=== PATIENT | female | born 1935 | race African-American/Black ===

== ENCOUNTER → 2017-10-27 | Outpatient (CLI) | payer MEDICARE ==
[2016-10-21 10:10] VITALS: BP 162/74
[~2017-10-27] MED LIST: ACET-704 PO; DILT240C2; NYST15PO9 TP; PRED20TA PO; PROM25TA10 PO; SULF1TAB24 PO
--- NOTE | 2017-10-27 11:16 | RAD ---
DATE: 10/27/2017 EXAM: DIGITAL SCREEN BILAT W/CAD HISTORY: Routine screening. Bilateral breast biopsy status post radiation in 1999 and 2008. COMPARISON: Previous study from 10/20 12/16 and 08/24/2015 This study was interpreted with the benefit of Computerized Aided Detection (CAD). FINDINGS: Breast Density: SCATTERED The breast parenchyma shows scattered fibroglandular densities. Breast parenchyma level B. Architectural distortion is seen in the posterior left breast at 12:00 position, stable from prior study. This most likely represents scar from surgery. Benign bilateral calcifications. No suspicious calcifications, new spiculated mass or areas of architectural distortion. Bilateral mild skin thickening may be secondary to radiation therapy. IMPRESSION: No mammographic evidence of malignancy. Stable mammogram. BI-RADS CATEGORY: 2 BENIGN FINDING(S) RECOMMENDED FOLLOW-UP: 12M 12 MONTH FOLLOW-UP PQRS compliance statement: Patient information was entered into a reminder system with a target due date 10/27/2018 for the next mammogram. Mammography is a sensitive method for finding small breast cancers, but it does not detect them all and is not a substitute for careful clinical examination. A negative mammogram does not negate a clinically suspicious finding and should not result in delay in biopsying a clinically suspicious abnormality. "Our facility is accredited by the [employer] Mammography Program."
== END | disposition home or self-care (01) ==
LOC: MAMMO 09:50
PROVIDERS: ATTEND Family Medicine
DX: Z12.31 Encounter for screening mammogram for malignant neoplasm of breast (principal)
CPT/HCPCS: G0202; 77067

== ENCOUNTER 2018-01-16 10:17 | Emergency (ER) | payer MEDICARE | END 2018-01-16 11:30 | disposition home or self-care (01) | LOC: ER 10:17 | DX: B37.2 Candidiasis of skin and nail (principal); R10.2 Pelvic and perineal pain; K21.9 Gastro-esophageal reflux disease without esophagitis; I10 Essential (primary) hypertension; Z91.041 Radiographic dye allergy status | CPT/HCPCS: 99283 ==

== ENCOUNTER 2018-02-21 18:16 | Emergency (ER) | payer MEDICARE ==
[2018-02-21 19:25] LABS: ADD MAN DIFF? NO
[2018-02-21 19:31] LABS: BASO % 1 % (0-3); EOS % 1 % (0-3); HEMATOCRIT 39.2 % (36.0-47.0); HEMOGLOBIN 12.9 g/dL (12.0-15.5); LYMPH # 1.8 x10^3/uL (1.0-4.8); LYMPH % 22 % (24-48); MEAN CORPUSCULAR HEMOGLOBIN 31 pg (25-35); MEAN CORPUSCULAR HGB CONC 33 g/dL (31-37); MEAN CORPUSCULAR VOLUME 94 fL (79-100); MONO # 0.6 x10^3/uL (0.0-1.1); MONO % 7 % (0-9); NEUT # 5.5 x10^3uL (1.8-7.7); NEUT % 69 % (31-73); PLATELET COUNT 311 x10^3/uL (140-400); RED BLOOD COUNT 4.16 x10^6/uL (3.50-5.40); RED CELL DISTRIBUTION WIDTH 13.8 % (11.5-14.5); WHITE BLOOD COUNT 7.9 x10^3/uL (4.0-11.0)
[2018-02-21 19:41] LABS: INR 1.1 (0.8-1.1); PROTHROMBIN TIME PATIENT 13.3 SEC (11.7-14.0)
[2018-02-21 19:50] LABS: ANION GAP 5 (6-14); BLOOD UREA NITROGEN 20 mg/dL (7-20); CALCIUM 9.8 mg/dL (8.5-10.1); CARBON DIOXIDE 34 mmol/L (21-32); CHLORIDE 107 mmol/L (98-107); CREATININE 0.8 mg/dL (0.6-1.0); GFR 83.1; GLUCOSE 103 mg/dL (70-99); POTASSIUM 4.3 mmol/L (3.5-5.1); SODIUM 146 mmol/L (136-145)
[2018-02-21 19:53] LABS: TROPONINI 0.019 ng/mL (0.000-0.055)
[2018-02-21 19:56] LABS: ALBUMIN 3.5 g/dL (3.4-5.0); ALK PHOS 80 U/L (46-116); ALT (SGPT) 27 U/L (14-59); AST (SGOT) 26 U/L (15-37); DIRECT BILIRUBIN 0.1 mg/dL (0.0-0.2); LIPASE 64 U/L (73-393); MAGNESIUM 2.1 mg/dL (1.8-2.4); TOTAL BILIRUBIN 0.3 mg/dL (0.2-1.0); TOTAL PROTEIN 7.8 g/dL (6.4-8.2)
[2018-02-21 20:00] LABS: THYROID STIM HORMONE (TSH) 0.521 uIU/mL (0.358-3.74)
[2018-02-21 20:02] LABS: NT-PRO BNP 125 pg/mL (0-449)
[2018-02-21 20:02] LABS: CKMB INDEX 0.9 % (0-4); CREATINE KINASE 109 U/L (26-192)
[2018-02-21 20:33] LABS: BILIRUBIN,URINE NEGATIVE (NEG); CLARITY,URINE CLEAR; COLOR,URINE YELLOW; GLUCOSE,URINE NEGATIVE (NEG); NITRITE,URINE NEGATIVE (NEG); PROTEIN,URINE NEGATIVE (NEG-TRACE)
[2018-02-21 20:41] LABS: BARBITURATES NEG (NEG); BENZODIAZEPINES POS (NEG); CANNABINOIDS NEG (NEG); COCAINE NEG (NEG); METHADONE NEG (NEG); OPIATES POS (NEG); PHENCYCLIDINE NEG (NEG)
[2018-02-21 20:42] LABS: AMPHETAMINE/METHAMPHETAMINE NEG (NEG); ETHANOL, URINE NEG (NEG)
[2018-02-21 20:46] LABS: BACTERIA,URINE MODERATE /HPF (0-FEW); RBC,URINE 0 /HPF (0-2); SQUAMOUS EPITHELIAL CELL,UR MANY /LPF
== END 2018-02-21 21:15 | disposition home or self-care (01) ==
LOC: ER 18:16
DX: M62.838 Other muscle spasm (principal); M54.2 Cervicalgia; N39.0 Urinary tract infection, site not specified; K21.9 Gastro-esophageal reflux disease without esophagitis; I10 Essential (primary) hypertension; Z91.041 Radiographic dye allergy status; Z90.49 Acquired absence of other specified parts of digestive tract; Z90.710 Acquired absence of both cervix and uterus
CPT/HCPCS: 36415; 71045; 80048; 80076; 80307; 81001; 82553; 83690; 83735; 83880; 84443; 84484; 85025; 85610; 87086; 93005; 99285-25

== ENCOUNTER 2018-03-28 17:04 | Emergency (ER) | payer MEDICARE ==
[2018-03-28] MEDS: ONDANSETRON ODT 4 MG TAB.RAPDIS. PO (17:32)
== END 2018-03-28 18:45 | disposition home or self-care (01) ==
LOC: ER 17:04
DX: T50.995A Adverse effect of other drugs, medicaments and biological substances, initial encounter (principal); R25.1 Tremor, unspecified; K21.9 Gastro-esophageal reflux disease without esophagitis; I10 Essential (primary) hypertension; Y92.89 Other specified places as the place of occurrence of the external cause
CPT/HCPCS: 93005; 99283-25; Q0162

== ENCOUNTER 2018-10-12 10:47 | Emergency (ER) | payer MEDICARE ==
[~2018-10-12] VITALS: Ht 165.1 cm; Wt 61.2 kg
[~2018-10-12 10:47] MED LIST changes: +ALPR0.5T6 PO; +CEPH-264 PO; +DIAZ2TAB PO; +NITR100C62 PO; +ONDA4TAB12 PO; +PANT20TA2 PO; +SERT50TA8 PO
[2018-10-12 12:05] LABS: BASO % 1 % (0-3); EOS % 0 % (0-3); HEMATOCRIT 41.1 % (36.0-47.0); HEMOGLOBIN 14.1 g/dL (12.0-15.5); LYMPH # 1.9 x10^3/uL (1.0-4.8); LYMPH % 23 % (24-48); MEAN CORPUSCULAR HEMOGLOBIN 32 pg (25-35); MEAN CORPUSCULAR HGB CONC 34 g/dL (31-37); MEAN CORPUSCULAR VOLUME 93 fL (79-100); MONO # 0.9 x10^3/uL (0.0-1.1); MONO % 10 % (0-9); NEUT # 5.5 x10^3uL (1.8-7.7); NEUT % 66 % (31-73); PLATELET COUNT 389 x10^3/uL (140-400); RED BLOOD COUNT 4.41 x10^6/uL (3.50-5.40); WHITE BLOOD COUNT 8.3 x10^3/uL (4.0-11.0)
--- NOTE | 2018-10-12 12:16 | EKG ---
[facility] [address] [place] [address] Test Date: 2018-10-12 Test Time: 12:13:04 Pat Name: TREY THAYER Department: Room: Gender: Female Child Support Investigator: : 1935 Requested By: FARNAZ MAY Order Number: [id number] Reading MD: Bradley Handley MD Measurements Intervals Friendly Rate: 63 P: 29 MN: 162 QRS: -5 QRSD: 82 T: 28 QT: 430 QTc: 443 Interpretive Statements SINUS RHYTHM Electronically Signed On 10-13-2018 10:58:11 FIRST AID ATTENDANT by Bradley Handley MD
--- NOTE | 2018-10-12 12:32 | RAD ---
PROCEDURE: PORTABLE CHEST 1V CLINICAL INDICATION: SHORTNESS OF BREATH COMPARISON: 02/21/2018 FINDINGS: No pneumothorax identified. Cardiac and mediastinal contours unremarkable. No pulmonary consolidation or acute airspace disease. No acute osseous abnormalities identified. IMPRESSION: No pulmonary consolidation or acute airspace disease. Electronically signed by: Rojelio Dejesus DO (10/12/2018 12:28 PM) [id number]
[2018-10-12 13:06] LABS: CALCIUM 10.2 mg/dL (8.5-10.1); GFR 64.1; POTASSIUM 4.4 mmol/L (3.5-5.1)
[2018-10-12 13:09] LABS: INFLUENZA A PATIENT NEGATIVE (NEGATIVE); INFLUENZA B PATIENT NEGATIVE (NEGATIVE)
[2018-10-12 13:20] LABS: BILIRUBIN,URINE NEGATIVE (NEG); CLARITY,URINE CLEAR; COLOR,URINE YELLOW; NITRITE,URINE NEGATIVE (NEG); PH,URINE 5.5; PROTEIN,URINE NEGATIVE (NEG-TRACE)
[2018-10-12 13:30] LABS: SQUAMOUS EPITHELIAL CELL,UR OCC /LPF
[2018-10-12 13:31] LABS: BACTERIA,URINE FEW /HPF (0-FEW)
--- NOTE | 2018-10-12 13:32 | PHYS DOC ---
Past Medical History Past Medical History: Anxiety, Arthritis, Cancer, GERD, Hypertension, Pneumonia Additional Past Medical Histor: BREAST CA WITH CHEMO AND RADIATION, DJD Past Surgical History: Appendectomy, Hysterectomy, Other Additional Past Surgical Histo: bilateral lumpectomy, BLADDER SLING, CARDIAC CATH WITH NO STENTS Alcohol Use: None Drug Use: None Adult General Chief Complaint Chief Complaint: NAUSEA/VOMITING/DIARRHA HPI HPI Patient is a 83 year old female who presents with generalized weakness. No ill over the last 7 days. She complains of persistent nausea but no vomiting. She does have some diffuse abdominal pain. She has also had episodes of diarrhea described to be nonbloody. The patient states she has had problems ambulating around her house. She does normally live alone. She has not fallen. She also has had anorexia over the last 4-5 days. She denies urinary symptoms. No constipation. Denies chest pain. She does feel that she is having dyspnea that is present both with exertion and at rest. No worsening orthopnea. Denies lower extremity edema. Review of Systems Review of Systems Constitutional: Denies fever or chills Eyes: Denies change in visual acuity HENT: Denies nasal congestion Respiratory: Denies cough or shortness of breath Cardiovascular: No additional information not addressed in HPI GI: as documented above : Denies dysuria or hematuria Musculoskeletal: Denies back pain Integument: Denies rash or skin lesions Neurologic: Denies headache Endocrine: Denies polyuria All other systems were reviewed and found to be within normal limits, except as documented in this note. Current Medications Current Medications Current Medications Medications (Trade) Dose Ordered Sig/[facility] Start Time Stop Time Status Last Admin Dose Admin Ondansetron HCl (Zofran) 4 mg 1X ONCE 10/12/18 14:00 10/12/18 14:01 DC 10/12/18 14:00 4 MG Sodium Chloride 500 ml @ 500 mls/hr 1X ONCE 10/12/18 14:00 10/12/18 14:59 DC 10/12/18 14:00 500 MLS/HR Allergies Allergies Allergies Coded Allergies Type Severity Reaction Last Updated Verified Iodinated Contrast- Oral and IV Dye Allergy Severe ITCHING AND SHORT OF BREATH 06/20/16 Yes iodine Allergy Severe ITCHING AND SHORTNESS OF BREATH 06/20/16 Yes Physical Exam Physical Exam Constitutional: Well developed, well nourished, no acute distress, non-toxic appearance HENT: Normocephalic, atraumatic, bilateral external ears normal, oropharynx moist Eyes: PERRLA, EOMI, conjunctiva normal, no discharge Neck: Normal range of motion, no tenderness, supple Cardiovascular:Heart rate regular rhythm Lungs & Thorax: Bilateral breath sounds clear to auscultation Abdomen: Bowel sounds normal, soft, diffusely tender to palpation with no guarding or rebound Skin: Warm, dry, no erythema Back: No CVA tenderness Extremities: No tenderness, no edema Neurologic: Alert and oriented X 3, normal motor function Psychologic: Affect normal Current Patient Data Vital Signs Vital Signs Date Time Temp Pulse Resp B/P (MAP) Pulse Ox O2 Delivery O2 Flow Rate FiO2 10/12/18 14:04 64 24 158/82 (107) 94 10/12/18 11:59 98.6 Room Air 98.6 Lab Values Laboratory Tests Test 10/12/18 11:53 10/12/18 12:26 10/12/18 12:45 10/12/18 13:05 White Blood Count 8.3 x10^3/uL (4.0-11.0) Red Blood Count 4.41 x10^6/uL (3.50-5.40) Hemoglobin 14.1 g/dL (12.0-15.5) Hematocrit 41.1 % (36.0-47.0) Mean Corpuscular Volume 93 fL (79-100) Mean Corpuscular Hemoglobin 32 pg (25-35) Mean Corpuscular Hemoglobin Concent 34 g/dL (31-37) Red Cell Distribution Width 14.0 % (11.5-14.5) Platelet Count 389 x10^3/uL (140-400) Neutrophils (%) (Auto) 66 % (31-73) Lymphocytes (%) (Auto) 23 % (24-48) L Monocytes (%) (Auto) 10 % (0-9) H Eosinophils (%) (Auto) 0 % (0-3) Basophils (%) (Auto) 1 % (0-3) Neutrophils # (Auto) 5.5 x10^3uL (1.8-7.7) Lymphocytes # (Auto) 1.9 x10^3/uL (1.0-4.8) Monocytes # (Auto) 0.9 x10^3/uL (0.0-1.1) Eosinophils # (Auto) 0.0 x10^3/uL (0.0-0.7) Basophils # (Auto) 0.0 x10^3/uL (0.0-0.2) Influenza Type A Antigen Negative (NEGATIVE) Influenza Type B Antigen Negative (NEGATIVE) Sodium Level 141 mmol/L (136-145) Potassium Level 4.4 mmol/L (3.5-5.1) Chloride Level 101 mmol/L (98-107) Carbon Dioxide Level 32 mmol/L (21-32) Anion Gap 8 (6-14) Blood Urea Nitrogen 26 mg/dL (7-20) H Creatinine 1.0 mg/dL (0.6-1.0) Estimated GFR (Cockcroft-Gault) 64.1 Glucose Level 88 mg/dL (70-99) Calcium Level 10.2 mg/dL (8.5-10.1) H Total Bilirubin 0.6 mg/dL (0.2-1.0) Direct Bilirubin 0.2 mg/dL (0.0-0.2) Aspartate Amino Transferase (AST) 20 U/L (15-37) Alanine Aminotransferase (ALT) 30 U/L (14-59) Alkaline Phosphatase 93 U/L (46-116) Troponin I Quantitative < 0.017 ng/mL (0.000-0.055) GH-Lko-H-Type Natriuretic Peptide 280 pg/mL (0-449) Total Protein 8.4 g/dL (6.4-8.2) H Albumin 4.0 g/dL (3.4-5.0) Lipase 94 U/L (73-393) Urine Collection Type U cath Urine Color Yellow Urine Clarity Clear Urine pH 5.5 Urine Specific [place] 1.025 Urine Protein Negative mg/dL (NEG-TRACE) Urine Glucose (UA) Negative mg/dL (NEG) Urine Ketones (Stick) Negative mg/dL (NEG) Urine Blood Moderate (NEG) Urine Nitrite Negative (NEG) Urine Bilirubin Negative (NEG) Urine Urobilinogen Dipstick 1.0 mg/dL (0.2 mg/dL) Urine Leukocyte Esterase Negative (NEG) Urine RBC 3-5 /HPF (0-2) Urine WBC 1-4 /HPF (0-4) Urine Squamous Epithelial Cells Occ /LPF Urine Bacteria Few /HPF (0-FEW) Urine Mucus Slight /LPF Laboratory Tests 10/12/18 11:53 Laboratory Tests 10/12/18 12:45 EKG EKG No STEMI Interpretation Time: 12:15 Radiology/Procedures Radiology/Procedures PCXR: no acute findings. CT abd/pelvis: FINDINGS: Limited evaluation of solid abdominal and pelvic organs due to lack of IV contrast. Heart is normal in size. No pericardial or effusion. Clear lung bases. Noncontrast appearance of the liver, spleen, gallbladder, pancreas, adrenals within normal limits. 1.4 cm nonobstructing stone in the lower pole collecting system of the right kidney. Multiple bilateral low attenuating lesions are seen in the kidneys, the largest in the inferior pole of the right kidney measuring 0.4 x 4.0 cm and in the left kidney measuring 3.7 x 3.3 cm. No enlarged retroperitoneal or pelvic adenopathy. No free pelvic fluid or ascites. Sigmoid and descending colon diverticulosis. No bowel obstruction. Normal appendix. Urinary bladder demonstrates no stones. Status post hysterectomy. No abdominal hernia. No pneumoperitoneum. No suspicious bony lesion. 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 IMPRESSION: Limited evaluation of solid abdominal and pelvic organs due to lack of IV contrast. 1. Nonobstructing right renal stone with multiple bilateral simple appearing renal cysts. 2. No bowel obstruction normal appendix. Course & Med Decision Making Course & Med Decision Making Pertinent Labs and Imaging studies reviewed. (See chart for details) Patient was evaluated in the emergency department for some nausea and generalized weakness at home. Her lab panel did not reveal acute cause for her symptoms. Her EKG was nonacute. She underwent CT scan of the abdomen pelvis without contrast due to a contrast allergy. This exam also did not reveal any acute explanation for her symptoms. Urine was not infected. Ultimately, the patient was unwilling to stay in the hospital. I discussed with her the option to be admitted for generalized weakness and to receive physical therapy consultation. The patient desired discharge home. The patient is competent to make that choice. I do not feel the hospital admission is imminently necessary. Prior to discharge, the patient was ambulated about the department and had a normal steady gait. She was accompanied this evening by her granddaughter. Patient does have follow-up already scheduled with her primary care physician but she is advised to contact that office tomorrow to inquire about a sooner appointment. Otherwise, return to the emergency department for any new or worsening symptoms. Follow precautions were also discussed with the patient prior to discharge home. In the ER, she received a small fluid bolus and a single dose of Zofran which did entirely relieve her symptoms. She is discharged home also with a prescription for some Zofran. Dragon Disclaimer Dragon Disclaimer This electronic medical record was generated, in whole or in part, using a voice recognition dictation system. Departure Departure Referrals: MARVIN RUSSELL MD (PCP) Scripts Ondansetron (ONDANSETRON ODT) 4 Mg Tab.rapdis 4 MG PO BID PRN for NAUSEA/VOMITING, #12 TAB Prov: FARNAZ MAY DO 10/12/18 FARNAZ MAY DO Oct 12, 2018 13:31
[2018-10-12] MEDS ORDERED: ONDANSETRON PF 4 MG/2 ML VIAL. IV ONE (14:00)
[2018-10-12] MEDS ORDERED: IV NORMAL SALINE 500ML BAG 500 ML IV ONE (14:00)
[2018-10-12 14:04] VITALS: BP 158/82
[2018-10-12 14:23] LABS: DIRECT BILIRUBIN 0.2 mg/dL (0.0-0.2); TOTAL BILIRUBIN 0.6 mg/dL (0.2-1.0); TOTAL PROTEIN 8.4 g/dL (6.4-8.2)
--- NOTE | 2018-10-12 14:56 | RAD ---
PQRS Compliance statement: One or more of the following individualized dose reduction techniques were utilized for this examination: 1. Automated exposure control. 2. Adjustment of the mA and/or kV according to patient size. 3. Use of iterative reconstruction technique. Indication:ABDOMINAL PAIN, NAUSEA, VOMITING, DIARRHEA, X 1 WEEK, H/O CONTRAST ALLERGY TECHNIQUE: CT abdomen and pelvis without IV contrast with multiplanar reformats. COMPARISON: 06/20/2016 FINDINGS: Limited evaluation of solid abdominal and pelvic organs due to lack of IV contrast. Heart is normal in size. No pericardial or effusion. Clear lung bases. Noncontrast appearance of the liver, spleen, gallbladder, pancreas, adrenals within normal limits. 1.4 cm nonobstructing stone in the lower pole collecting system of the right kidney. Multiple bilateral low attenuating lesions are seen in the kidneys, the largest in the inferior pole of the right kidney measuring 0.4 x 4.0 cm and in the left kidney measuring 3.7 x 3.3 cm. No enlarged retroperitoneal or pelvic adenopathy. No free pelvic fluid or ascites. Sigmoid and descending colon diverticulosis. No bowel obstruction. Normal appendix. Urinary bladder demonstrates no stones. Status post hysterectomy. No abdominal hernia. No pneumoperitoneum. No suspicious bony lesion. 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 IMPRESSION: Limited evaluation of solid abdominal and pelvic organs due to lack of IV contrast. 1. Nonobstructing right renal stone with multiple bilateral simple appearing renal cysts. 2. No bowel obstruction normal appendix. Electronically signed by: Rojelio Dejesus DO (10/12/2018 2:53 PM) [id number]
[2018-10-12] MEDS ORDERED: ONDA4TAB12 PO (15:52)
== END 2018-10-12 16:10 | disposition home or self-care (01) ==
LOC: ER 10:47
DX: N20.0 Calculus of kidney (principal); R19.7 Diarrhea, unspecified; R53.1 Weakness; R63.0 Anorexia; Z68.22 Body mass index [BMI] 22.0-22.9, adult; R06.00 Dyspnea, unspecified; K21.9 Gastro-esophageal reflux disease without esophagitis; I10 Essential (primary) hypertension; Z90.89 Acquired absence of other organs; Z90.710 Acquired absence of both cervix and uterus; Z91.041 Radiographic dye allergy status
CPT/HCPCS: 36415; 51701; 71045; 74176; 80048; 80076; 81001; 83690; 83880; 84484; 85025; 87804; 93005; 96361; 96374; 99285; J2405; J7040

== ENCOUNTER → 2018-11-17 | Outpatient (CLI) | payer MEDICARE ==
--- NOTE | 2018-11-18 09:59 | RAD ---
DATE: 11/17/2018 1:00 PM EXAM: DIGITAL SCREEN BILAT W/CAD HISTORY: routine screening evaluation. History of prior bilateral breast cancer COMPARISON: Prior mammographic imaging dating back to 11/16/2007 Bilateral CC and MLO views of the breasts were performed. Bilateral breast tomosynthesis was performed in CC and MLO projections. This study was interpreted with the benefit of Computerized Aided Detection (CAD ). Breast Density: The breast parenchyma shows scattered fibroglandular densities. Breast parenchyma level B. FINDINGS: Architectural distortion in the 12:00 position within the left breast with associated dystrophic calcifications is grossly stable in appearance, agree from prior lumpectomy change. Benign calcifications are present. Dense asymmetric retroareolar right breast tissue is mildly nodular, grossly stable to the immediate prior examination however appears slightly more prominent when compared to 08/24/2015. No suspicious masses, microcalcifications or new architectural distortion is present to suggest malignancy in either breast. The visualized axillae are unremarkable. IMPRESSION: Right breast retroareolar focal asymmetry, findings for which additional imaging is advised. BI-RADS CATEGORY: 0 INCOMPLETE: NEEDS ADDITIONAL IMAGING EVALUATION AND/OR PRIOR MAMMOGRAMS FOR COMPARISON. RECOMMENDED FOLLOW-UP: ADD ADDITIONAL IMAGING The patient will be contacted to return for additional imaging and a supplemental report will follow. Specifically, spot compression views in the retroareolar right breast in the CC and MLO projection is recommended with associated dedicated breast ultrasound. PQRS compliance statement: Patient information was entered into a reminder system with a target due date immediate recall for the next mammogram. Mammography is a sensitive method for finding small breast cancers, but it does not detect them all and is not a substitute for careful clinical examination. A negative mammogram does not negate a clinically suspicious finding and should not result in delay in biopsying a clinically suspicious abnormality. "Our facility is accredited by the [employer] Mammography Program." MTDD
== END | disposition home or self-care (01) ==
LOC: MAMMO 10:02
PROVIDERS: ATTEND Internal Medicine
DX: Z12.31 Encounter for screening mammogram for malignant neoplasm of breast (principal)
CPT/HCPCS: 77067

== ENCOUNTER → 2018-11-20 | Outpatient (CLI) | payer MEDICARE ==
--- NOTE | 2018-11-20 15:23 | RAD ---
DATE: 11/20/2018 3:15 PM EXAM: DIGITAL DIAGNOSTIC RT, BREAST RIGHT HISTORY: further evaluation of a finding noted on her most recent screening mammographic examination. On that examination a focal asymmetry was reported within the right retroareolar breast COMPARISON: Prior mammographic imaging 11/17/2018, 10/27/2017, 10/21/2016, 08/24/2015 Spot compression 2-D CC and MLO views of the right breast were performed in the retroareolar region. FINDINGS: Spot compression views of the right breast redemonstrate the retroareolar soft tissue prominence, in general mildly progressed compared to prior examinations. In addition skin thickening is also seen. Therefore this was further evaluated by dedicated breast ultrasound. ULTRASOUND TECHNIQUE: High-resolution Grayscale and color Doppler sonographic evaluation of the right breast was performed in the retroareolar region. ULTRASOUND FINDINGS: In the retroareolar right breast grossly normal appearing breast tissue is identified. No discrete mass is seen. The nipple-retroareolar complex measures approximately 3 cm. Skin thickening is seen. IMPRESSION: No sonographic or mammographic evidence of malignancy. BI-RADS CATEGORY: 2 BENIGN FINDING(S) RECOMMENDED FOLLOW-UP: 12M 12 MONTH FOLLOW-UP Annual screening mammography is recommended, unless clinically indicated sooner based on symptoms or change in physical exam. In addition, recommend clinical evaluation of the right breast skin thickening. This may be due to progressive changes from prior radiation therapy. PQRS compliance statement: Patient information was entered into a reminder system with a target due date 11/18/2019 for the next mammogram. Mammography is a sensitive method for finding small breast cancers, but it does not detect them all and is not a substitute for careful clinical examination. A negative mammogram does not negate a clinically suspicious finding and should not result in delay in biopsying a clinically suspicious abnormality. "Our facility is accredited by the [employer] Mammography Program."
== END | disposition home or self-care (01) ==
LOC: MAMMO 12:46
PROVIDERS: ATTEND Internal Medicine
DX: R92.8 Other abnormal and inconclusive findings on diagnostic imaging of breast (principal); R23.4 Changes in skin texture
CPT/HCPCS: 76641; 77065